=== PATIENT | female | born 1985 ===

== ENCOUNTER 2017-07-23 01:03 | Emergency (ER) | payer MEDICAID | END 2017-07-23 02:39 | disposition home or self-care (01) | LOC: C.EROB 01:03 | DX: O47.1 False labor at or after 37 completed weeks of gestation (principal); Z3A.39 39 weeks gestation of pregnancy ==

== ENCOUNTER 2017-07-23 09:43 | Inpatient (IN) | payer MEDICAID ==
[2017-07-23 10:16] VITALS: BMI 39.9
[2017-07-23] MEDS ORDERED: Lactated Ringer's 1,000 ML IV SCH (10:30)
[2017-07-23] MEDS ORDERED: Dextrose 5%/Lactated Ringer's 1,000 ML IV SCH (10:30)
--- NOTE | 2017-07-23 10:50 | OBHP ---
Datetime: 07/23/2017 10:23 IP Adm Impression: Postterm, intrauterine ; Active labor; Intact Membranes IP Admit Plan: Admit to unit; Initiate labor protocol Admit Comment, IP Provider: 32 y.o. , LMP unsure, JACOB 07/21/17, EGA 40w 2d by sono 01/2017 at 17w 1d, returns c/o stronger Ctx since 0500/0600 hours, pain scale 7/10, every 5 minutes. +/- small LOF, denies VB. (+) AFM. Was seen in triage earlier this morning c/o Ctx: discharged home at approximatel y 0220 hours - 1 cm. care: [facility] - patient states no issue. Chart review noted for abnor mal QUAD; negative work up. P Ob: primip P [employer]: 13 x regular x 5. Denies fibroids; abnormal Pap. (+) ov cyst, 09/2016 (corpus luteal of preg jesus alberto) PMH: denies PSH: denies NKDA Meds; PNV - QD Soc Hx: denies tobacco, illicit drug or EtOH use. Lives with FOB; together x 5 years. Worked as bingo cashier. Fam Hx: Mother alive 55. Father alive 75, both no med issues. Denies fam h/o cancer. P.E.: as above. Small, in obvious discomfort with contractions. Awake, alert, oriented to time, p erson and place. Pleasant and cooperative. Accompanied by FOB Assessment: 32 y.o. P0, 40w 2d, active labor. GBS (-). Category 1 tracing. Patient not interested in epidural at this time; will re-assess. Clinically stable. Plan: 1) Admit 2) NPO 3) Admission labs 4) Continuous EFM 5) Possible augmentaiton 6) Pain meds, upon request 7) Anticipate vaginal delivery Pelvic Type - PN: Adequate Extremities - PN: Not Done Abdomen - PN: Normal Back - PN: Normal Breast - PN: Not Done Lungs - PN: Normal Heart - PN: Normal Thyroid - PN: Not Done Neurologic - PN: Normal HEENT - PN: Normal General - PN: Normal Weight - Estimated: 3745 Presentation-Admit: Vertex FHR - Baseline A Provider: 130 Membranes, Provider: Intact Contraction Comments Provider: 5-6 Comments, ACOG Physical Exam: Abdomen: Soft. Gravid. Fundal height 39 cm All other systems reviewed and are negative Gestation - Est Wks by US: 40w 2d IP Hx Assessment: The History has been Reviewed and is Current EGA AdmitDate IP: 40.2 Vital Signs Provider: Reviewed; Within Normal Limits IP Chief Complaint: Uterine contractions NICHD Variability Prov Fetus A: Moderate 6-25bpm NICHD Accel Fetus A IP Provider: 15X15 FHR Category Provider Fetus A: Category I NICHD Decel Fetus A IP Provider: None Dilatation, Provider: 6 Effacement, Provider: 80 Station, Provider: -2 Genitourinary Exam: Normal DTRs - PN: Normal
[2017-07-23] MEDS ORDERED: Oxytocin 30 UNIT 30 UNITS/500 ML BAG IV PRN (10:51)
[2017-07-23] MEDS ORDERED: Oxytocin 30 UNIT 30 UNITS/500 ML BAG IV ONE (10:52)
[2017-07-23 11:03] LABS: BASO % 0.3 % (0.0-2.0); HEMOGLOBIN 12.2 g/dL (11.0-16.0); LYMPH # 1.5 K/uL (1.0-4.3); LYMPH % 11.1 % (20.0-40.0); MEAN CORPUSCULAR HEMOGLOBIN 30.6 pg (27.0-31.0); MEAN CORPUSCULAR HGB CONC 34.8 g/dL (33.0-37.0); MEAN PLATELET VOLUME 9.3 fL (7.2-11.7); MONO # 0.5 K/uL (0.0-0.8); MONO % 3.7 % (0.0-10.0); NEUT # 11.2 K/uL (1.8-7.0); NEUT % 84.9 % (50.0-75.0); RBC 3.98 Mil/uL (3.80-5.20); RED CELL DISTRIBUTION WIDTH 14.8 % (11.5-14.5); WHITE BLOOD COUNT 13.2 K/uL (4.8-10.8)
[2017-07-23 11:07] LABS: SQUAMOUS EPITHIAL 7 /hpf (0-5); URINE BACTERIA RARE (<OCC); URINE BILIRUBIN NEGATIVE (NEGATIVE); URINE BLOOD 1+ (NEGATIVE); URINE CLARITY Clear (Clear); URINE COLOR Yellow (YELLOW); URINE GLUCOSE (UA) NORMAL (Normal); URINE LEUKOCYTE ESTERASE NEG Leu/uL (Negative); URINE NITRATE NEGATIVE (NEGATIVE); URINE PROTEIN 1+ mg/dL (NEGATIVE); URINE UROBILINOGEN NORMAL mg/dL (0.2-1.0)
[2017-07-23 11:18] LABS: ALB/GLOB RATIO 0.9 (1.0-2.1); ALBUMIN 3.5 g/dL (3.5-5.0); ALT/SGPT 12 U/L (9-52); AST/SGOT 25 U/L (14-36); BLOOD UREA NITROGEN 8 mg/dL (7-17); GFR AFRICAN-AMERICAN > 60; GFR NON-AFRICAN AMERICAN > 60
--- NOTE | 2017-07-23 13:41 | OBPN ---
Datetime: 07/23/2017 13:35 IP Progress Impression: Normal progression of labor IP Procedures: Artificial ROM; Sterile Vag Exam IP Progress Plan: Continue present management; Anticipate Vaginal Delivery Membranes, Provider: Ruptured Amniotic Fluid Color, Provider: Clear Contraction Comments Provider: 1-3 FHR - Baseline A Provider: 145 Gestation - Est Wks by US: 40w 2d IP Progress Note Comment: Patient reports increasing vaginal pain and low back pressure. Cervical exam: as above. AROM performed - copious amount of clear fluid. Pitocin at 8 mUnits Assessment: 32 y.o. P0, 40w 2d, near end of Stage 1 of labor. Category 1 tracing. Clinically stab le. Plan: 1) As above. 2) Anticipate vaginal delivery Vital Signs Provider: Reviewed FHR Category Provider Fetus A: Category I NICHD Variability Prov Fetus A: Moderate 6-25bpm Dilatation, Provider: 10 Effacement, Provider: 100 Station, Provider: 0 NICHD Decel Fetus A IP Provider: Early Datetime: 07/23/2017 10:23 Weight - Estimated: 3745 Presentation-Admit: Vertex NICHD Accel Fetus A IP Provider: [id number]
[2017-07-23] MEDS ORDERED: Oxytocin 20 units in LR 2,000 ML IV ONE (13:47)
[2017-07-23] MEDS ORDERED: Lidocaine 2% Inj (20ml) ONE (14:35)
[2017-07-23] MEDS ORDERED: Oxycodone/Acetaminophen 5/325 mg Tab PO PRN (17:13)
[2017-07-23] MEDS: Benzocaine/Menthol 20%-0.5% Topical Spray (60 ml) TOP PRN (18:54)
[2017-07-24 07:32] LABS: BASO # 0.1 K/uL (0.0-0.2); BASO % 0.4 % (0.0-2.0); EOS % 0.1 % (0.0-4.0); HEMOGLOBIN 10.3 g/dL (11.0-16.0); LYMPH # 2.6 K/uL (1.0-4.3); LYMPH % 19.4 % (20.0-40.0); MEAN CELL VOLUME 89.5 fL (81.0-99.0); MEAN CORPUSCULAR HEMOGLOBIN 30.3 pg (27.0-31.0); MEAN CORPUSCULAR HGB CONC 33.9 g/dL (33.0-37.0); MEAN PLATELET VOLUME 9.1 fL (7.2-11.7); MONO # 0.6 K/uL (0.0-0.8); MONO % 4.1 % (0.0-10.0); NEUT # 10.3 K/uL (1.8-7.0); RBC 3.4 Mil/uL (3.80-5.20); RED CELL DISTRIBUTION WIDTH 14.8 % (11.5-14.5); WHITE BLOOD COUNT 13.6 K/uL (4.8-10.8)
[2017-07-24] MEDS: Benzocaine/Menthol 20%-0.5% Topical Spray (60 ml) TOP PRN (09:12)
--- NOTE | 2017-07-24 20:44 | OBPPN ---
Datetime: 07/24/2017 08:33 PP Pain Prov: Within normal limits PP Nausea Prov: Denies PP Flatus Prov: Yes PP BM Prov: No PP Impression Prov: Normal progression PP Plan Prov: Continue present management PP Progress Note Prov: Patient seen and examined at bedside. Per nursing staff, no acute events over night. Patient reports pain well controlled on current regimen, was 4/10 in severity this morning. No w down to 0/10 in severity. Patient is ambulating around room without difficulty. Passing flatus, no bowel movement yet. Urinating without difficulty or pain. exclusively. Denies nausea or vomiting; tolerated regular breakfast this morning. Vaginal bleeding is decreased, has not required pad change since yesterday. Denies fever, chills, headache, dizziness. VS: T98.2, HR 110, BP 120/76 Gen: NAD, AAOx3, ambulating around room CV: RR, tachycardic, S1+, S2+ Pulm: CTA b/l Abd: Soft, nontender, fundus firm at 2cm above umbilicus Ext: No clubbing, cyanosis, edema Labs: 13.2>12.2/35<215 13.6>10.3/30.4<194 A/P 32 yo at 40w2d presented in active labor, s/p ppd#1 - Continue routine management - VSS, comfortable - Pain control: percocet, motrin - Continue senna, colace - Encourage ambulation and hydration - Encourage continued - Anticipate discharge tomorrow Plan discussed with Dr. Zamora Attending Note: Pt seen and discussed with Resident and I agree with the above. Vital Signs Provider PP: Reviewed; Within Normal Limits
--- NOTE | 2017-07-25 13:15 | OBPPN ---
Datetime: 07/25/2017 08:56 PP Pain Prov: Within normal limits PP Nausea Prov: Denies PP Flatus Prov: Yes PP BM Prov: Yes PP Comments Phys Exam Prov: fundus below umblicus ext no edema,no calf ten PP Impression Prov: Normal progression PP Plan Prov: Continue present management; Discharge PP Progress Note Prov: Patient seen and examined at bedside. Per nursing staff, no acute events over night. Pain well controlled. Patient ambulating around halls without difficulty. Tolerating regular d iet, without nausea or vomiting. Passing flatus, and had normal BM yesterday. Urinating without diffi culty or pain. Lochia improving, similar to normal period. Denies chest pain, shortness of breath, fe nato, chills, or urinary symptoms. VS: BP 106/70, HR 87, T 98.5 Gen: NAD, AAOx3 CV: RRR, +S1, +S2 Pulm: CTA b/l Abd: Soft, nontender, fundus firm at 2cm above umbilicus Ext: No cyanosis, clubbin, or edema Labs: 13.2>12.2/35<215 13.6>10.3/30.4<194 A/P: 32 yo who presented at 40w2d in active labor, s/p PPD#2 - Pain well controlled; ambulating normally - VSS; comfortable - Continue current pain regimen - Continue senna, colace - Encourage continued ambulation and hydration - Encourage breast feeding - Discharge today; patient to follow up in clinic in 6 weeks - Plan discussed with Dr. Ángel Coughlin Amine DO PGY1 agrees with above Vital Signs Provider PP: Reviewed; Within Normal Limits
--- NOTE | 2017-07-25 13:17 | OBDCSUM ---
Datetime: 07/25/2017 13:15 Discharged to, Provider: Home Follow up at, Provider: [facility] Discharge Diagnosis, Provider: Term Delivered Follow up in weeks, Provider: clinic Disch Activity Restrictions: No exercising; No lifting; No driving; Minimize walking; Minimize stair -climbing; No sexual activity; Nothing in vagina - [place], tampons, douche Discharge Comment, Provider: no sex motrin prn f/u in 6week Datetime: 07/23/2017 02:23 Discharge Diagnosis, Provider: Term Delivered
[2017-07-26 00:19] VITALS: BP 143/80; PULSE 102; RESP 18; TEMP 97.3; O2SAT 100
== END 2017-07-25 17:35 | disposition home or self-care (01) | DRG 775 ==
LOC: C.EROB 09:43 → C.4D 10:21 → C.4M 18:00
PROVIDERS: ADMIT Obstetrics & Gynecology; ATTEND Obstetrics & Gynecology
PROC: 10E0XZZ Delivery of Products of Conception, External Approach (ICD-10-PCS; principal; 2017-07-23)
DX: O48.0 Post-term pregnancy (principal); O99.214 Obesity complicating childbirth; Z3A.40 40 weeks gestation of pregnancy; Z37.0 Single live birth